=== PATIENT | female | born 1990 | race Caucasian/White ===

== ENCOUNTER 2017-07-19 06:51 | Outpatient (CLI) ==
[2017-07-19 07:35] VITALS: BMI 32.1
== END 2017-07-19 06:52 | disposition critical access hospital (66) ==
LOC: AMBL 06:51
PROVIDERS: ATTEND Family Medicine
DX: R07.9 Chest pain, unspecified (principal)

== ENCOUNTER 2017-07-19 07:04 | Emergency (ER) ==
[2017-07-19 07:35] VITALS: BP 98/69; TEMP 97.6; BMI 32.1
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
== END 2017-07-19 09:20 | disposition home or self-care (01) ==
LOC: ED 07:04
DX: F43.0 Acute stress reaction (principal); F41.9 Anxiety disorder, unspecified; F15.10 Other stimulant abuse, uncomplicated; F12.10 Cannabis abuse, uncomplicated; F17.210 Nicotine dependence, cigarettes, uncomplicated
CPT/HCPCS: 36415; 80053; 80306; 81001; 84484; 85025; 87086; 93005; 93010; 99283